=== PATIENT | male | born 1950 | race Hispanic/Latino ===

== ENCOUNTER 2017-04-01 09:55 | Outpatient (CLI) | payer OTHER ==
--- NOTE | 2017-04-01 18:41 | Magnetic Resonance Report ---
MR scan of the cranium was performed without contrast. Pulse sequences included: 1. T1 weighted sagittal and axial images without contrast 2. T2 weighted axial and coronal images 3. FLAIR axial images 4. Diffusion-weighted axial images 5. Apparent diffusion coefficient images Views of the posterior fossa showed a normal craniocervical junction. Cerebellar pontine angles were normal with normal seventh-eighth nerve complexes. Brainstem and cerebellum were normal. The ventricular system showed no dilatation or distortion. Images of the hemispheres showed multiple areas of increased signal in the periventricular white matter consistent with the diagnosis of multiple sclerosis. Sinuses, flow voids in the deering of Dobson, orbits, pituitary and basal ganglia were normal. Impression: Abnormal MR scan of the cranium without contrast. multiple white matter lesions in the periventricular white matter consistent with the diagnosis of multiple sclerosis.
== END 2017-04-01 09:56 | disposition home or self-care (01) ==
LOC: MRI 09:55
PROVIDERS: ATTEND Specialist
DX: G35 Multiple sclerosis (principal); R93.8 Abnormal findings on diagnostic imaging of other specified body structures
CPT/HCPCS: 70551

== ENCOUNTER 2020-05-08 09:18 | Emergency (ER) | payer BC, MEDICARE, OTHER ==
--- NOTE | 2020-05-08 10:55 | Emergency Department Report ---
ED General Adult HPI - General Stated complaint: SYNCOPE Time Seen by Provider: 05/08/20 10:55 - History of Present Illness Initial comments: Patient is a 69-year-old male who presents status post syncope patient states that he has a history of arthritis and MS he states that he was sitting and any kind of faded down patient did not hit his head no loss of consciousness patient is alert and oriented spoke with patient's patient's says patient has a history of seizures however did not say that patient was on any seizure medication. Patient denies any pain no fever no chills no cough no shortness of breath. - Related Data Home Medications Medication Instructions Recorded Confirmed Last Taken Baclofen [Lioresal] 10 mg PO TID 05/08/20 05/08/20 1 Day Ago ~05/07/20 Zonisamide 300 mg PO DAILY 05/08/20 05/08/20 1 Day Ago ~05/07/20 hydroCHLOROthiazide 25 mg PO DAILY 05/08/20 05/08/20 1 Day Ago [Hydrochlorothiazide] ~05/07/20 Allergies Allergy/AdvReac Type Severity Reaction Status Date / Time dexamethasone [From Decadron] Allergy Unknown Verified 05/08/20 12:25 phenytoin [From Dilantin] Allergy Unknown Verified 05/08/20 12:25 ED Review of Systems ROS: Stated complaint: SYNCOPE Other details as noted in HPI Constitutional: denies: chills, fever Eyes: denies: eye pain, eye discharge, vision change ENT: denies: ear pain, throat pain Respiratory: denies: cough, shortness of breath, wheezing Cardiovascular: syncope. denies: chest pain, palpitations Endocrine: no symptoms reported Gastrointestinal: denies: abdominal pain, nausea, diarrhea Genitourinary: denies: urgency, dysuria Musculoskeletal: denies: back pain, joint swelling, arthralgia Skin: denies: rash, lesions Neurological: denies: headache, weakness, paresthesias Psychiatric: denies: anxiety, depression Hematological/Lymphatic: denies: easy bleeding, easy bruising ED Past Medical Hx - Medications Home Medications: Home Medications Medication Instructions Recorded Confirmed Last Taken Type Baclofen [Lioresal] 10 mg PO TID 05/08/20 05/08/20 1 Day Ago History ~05/07/20 Zonisamide 300 mg PO DAILY 05/08/20 05/08/20 1 Day Ago History ~05/07/20 hydroCHLOROthiazide 25 mg PO DAILY 05/08/20 05/08/20 1 Day Ago History [Hydrochlorothiazide] ~05/07/20 ED Physical Exam - General General appearance: alert, in no apparent distress - Head Head exam: Present: atraumatic, normocephalic - Eye Eye exam: Present: normal appearance - ENT ENT exam: Present: mucous membranes moist - Neck Neck exam: Present: normal inspection - Respiratory Respiratory exam: Present: normal lung sounds bilaterally. Absent: respiratory distress - Cardiovascular Cardiovascular Exam: Present: regular rate, normal rhythm. Absent: systolic murmur, diastolic murmur, rubs, gallop - GI/Abdominal GI/Abdominal exam: Present: soft, normal bowel sounds - Rectal Rectal exam: Present: deferred - Extremities Exam Extremities exam: Present: normal inspection - Back Exam Back exam: Present: normal inspection - Neurological Exam Neurological exam: Present: alert, oriented X3 - Psychiatric Psychiatric exam: Present: normal affect, normal mood - Skin Skin exam: Present: warm, dry, intact, normal color. Absent: rash ED Course Vital Signs 05/08/20 05/08/20 05/08/20 10:59 11:00 11:15 Temperature Pulse Rate 79 75 Respiratory 10 L 8 L 16 Rate Blood Pressure 155/86 O2 Sat by Pulse Oximetry 05/08/20 05/08/20 05/08/20 11:29 11:30 11:46 Temperature 98.0 F Pulse Rate 82 79 94 H Respiratory 16 10 L 12 Rate Blood Pressure 155/86 152/87 152/87 O2 Sat by Pulse 100 Oximetry 05/08/20 05/08/20 05/08/20 12:00 12:15 12:30 Temperature Pulse Rate 86 76 Respiratory 16 15 Rate Blood Pressure 152/87 154/78 135/77 O2 Sat by Pulse Oximetry 05/08/20 05/08/20 05/08/20 12:45 13:00 13:15 Temperature Pulse Rate 88 74 70 Respiratory 12 14 13 Rate Blood Pressure 157/97 150/87 159/70 O2 Sat by Pulse Oximetry ED Medical Decision Making - Lab Data Result diagrams: 05/08/20 11:19 05/08/20 11:19 Lab Results 05/08/20 05/08/20 Range/Units 11:19 11:19 WBC 7.7 (4.5-11.0) K/mm3 RBC 5.02 (3.65-5.03) M/mm3 Hgb 14.9 (11.8-15.2) gm/dl Hct 44.6 (35.5-45.6) % MCV 89 (84-94) fl MCH 30 (28-32) pg MCHC 33 (32-34) % RDW 12.6 L (13.2-15.2) % Plt Count 343 (140-440) K/mm3 Lymph % (Auto) 8.7 L (13.4-35.0) % [place] % (Auto) 10.6 H (0.0-7.3) % Eos % (Auto) 1.6 (0.0-4.3) % Baso % (Auto) 0.9 (0.0-1.8) % Lymph # (Auto) 0.7 L (1.2-5.4) K/mm3 [place] # (Auto) 0.8 (0.0-0.8) K/mm3 Eos # (Auto) 0.1 (0.0-0.4) K/mm3 Baso # (Auto) 0.1 (0.0-0.1) K/mm3 Seg Neutrophils % 78.2 H (40.0-70.0) % Seg Neutrophils # 6.0 (1.8-7.7) K/mm3 Sodium 146 H (137-145) mmol/L Potassium 3.1 L (3.6-5.0) mmol/L Chloride 100.8 (98-107) mmol/L Carbon Dioxide 33 H (22-30) mmol/L Anion Gap 15 mmol/L BUN 39 H (9-20) mg/dL Creatinine 1.5 H (0.8-1.3) mg/dL Estimated GFR 47 ml/min BUN/Creatinine Ratio 26 % Glucose 92 (75-100) mg/dL Calcium 9.8 (8.4-10.2) mg/dL Total Bilirubin 0.60 (0.1-1.2) mg/dL AST 23 (5-40) units/L ALT 16 (7-56) units/L Alkaline Phosphatase 75 (35-129) units/L Troponin T 0.015 (0.00-0.029) ng/mL Total Protein 7.0 (6.3-8.2) g/dL Albumin 4.1 (3.9-5) g/dL Albumin/Globulin Ratio 1.4 % - EKG Data -: EKG Interpreted by Me - EKG Data 05/08/20 13:40 EKG time 11: 07 rate 73 sinus rhythm with left axis deviation no ST segment elevation no T wave inversion impression normal EKG - Medical Decision Making Cdx: Syncope Ddx: Dehydration, electrolyte abnormality I will get ekg, cbc, bmp, IV fluids and troponin 13:42 Patient is feeling better vital signs are stable. I will discharge the patient additional verbal discharge instructions were given. Critical care attestation.: If time is entered above; I have spent that time in minutes in the direct care of this critically ill patient, excluding procedure time. ED Disposition Clinical Impression: Syncope Qualifiers: Syncope type: unspecified Qualified Code(s): R55 - Syncope and collapse Disposition: DC-01 TO HOME OR SELFCARE Is pt being admited?: No Does the pt Need Aspirin: No Condition: Stable Instructions: Syncope (ED) Referrals: VINCENT JUAREZ MD [Primary Care Provider] - 3-5 Days MATT WRIGHT MD [Staff Physician] - 3-5 Days
[2020-05-08 11:38] LABS: Basophils # (Auto) 0.1 K/mm3 (0.0-0.1); Basophils % (Auto) 0.9 % (0.0-1.8); Eosinophils # (Auto) 0.1 K/mm3 (0.0-0.4); Eosinophils % (Auto) 1.6 % (0.0-4.3); Hematocrit 44.6 % (35.5-45.6); Hemoglobin 14.9 gm/dl (11.8-15.2); Lymphocytes # (Auto) 0.7 K/mm3 (1.2-5.4); Lymphocytes % (Auto) 8.7 % (13.4-35.0); Mean Corpuscular HGB Conc 33 % (32-34); Mean Corpuscular Volume 89 fl (84-94); Monocytes # (Auto) 0.8 K/mm3 (0.0-0.8); Monocytes % (Auto) 10.6 % (0.0-7.3); Platelet Count 343 K/mm3 (140-440); Red Blood Count 5.02 M/mm3 (3.65-5.03); Red Cell Distribution Width 12.6 % (13.2-15.2)
[2020-05-08 12:15] LABS: Albumin 4.1 g/dL (3.9-5); Calcium 9.8 mg/dL (8.4-10.2)
[2020-05-08] MEDS ORDERED: SODIUM CHLORIDE 0.9% 1000 ML 1,000 ML IV ONE (12:26)
[2020-05-08 17:38] VITALS: BP 160/81
== END 2020-05-08 15:38 | disposition home or self-care (01) ==
LOC: ED 09:18
DX: R55 Syncope and collapse (principal); Z79.899 Other long term (current) drug therapy; Z88.8 Allergy status to other drugs, medicaments and biological substances
CPT/HCPCS: 36415; 80053; 84484; 85025; 93005; 96360